=== PATIENT | female | born 1950 ===

== ENCOUNTER → 2020-12-23 08:00 | Outpatient (CLI) | payer OTHER ==
[~2020-12-23 08:00] MED LIST: ADULT LOW DOSE81 M1 PO; GLIPIZIDE10 MG PO; JARDIANCE25 MG PO; LANTUS SOL100 UNIT/1; METFORMIN HCL1000 MG; METOPROLOL SUCC25 MG PO; ZESTRIL5 MG PO
== END | disposition home or self-care (01) ==
LOC: LAB 08:00 → ADM 08:00 → CIR.AMB 12-27 08:15 → EDSTATUS 12-27 10:15 → CIR.AMB 12-27 10:15
PROVIDERS: ATTEND Student in an Organized Health Care Education/Training Program
DX: R07.89 Other chest pain (principal); Z01.810 Encounter for preprocedural cardiovascular examination; D64.89 Other specified anemias; N39.41 Urge incontinence; D68.8 Other specified coagulation defects; E88.89 Other specified metabolic disorders; N39.0 Urinary tract infection, site not specified; Z20.828 Contact with and (suspected) exposure to other viral communicable diseases

== ENCOUNTER → 2023-12-08 | Outpatient (CLI) | payer OTHER | END | disposition home or self-care (01) | LOC: RX STUDY 09:00 | DX: R13.10 Dysphagia, unspecified (principal); Z91.018 Allergy to other foods ==